=== PATIENT | female | born 1965 ===

== ENCOUNTER 2018-07-15 22:19 | Emergency (ER) | payer BC ==
[2018-07-15 22:26] VITALS: BP 140/81; PULSE 66; TEMP 97.9; BMI 29.5
[2018-07-15] MEDS ORDERED: ONDANSETRON 4 MG/2 ML VIAL IVPB ONE (22:49)
--- NOTE | 2018-07-15 22:49 | PDOC ---
History of Present Illness - General Chief Complaint: Lightheaded Stated Complaint: DIZZINESS,NAUSEA/VOMITING Time Seen by Provider: 07/15/18 22:36 History Source: Patient Exam Limitations: No Limitations - History of Present Illness Initial Comments: 07/15/18 23:24 This is a 53-year-old female who has a history of dizziness and vomiting in the past. Patient does not know if it was vertigo but thought it was probably food poisoning. Patient comes in today complaining of acute onset of dizziness associated with nausea and vomiting. Patient said she's been vomiting multiple times today. Patient denies any ringing or buzzing in her ears. Patient denies any changes in her vision. Patient denies any headache neck pain or any neurological complaints. Patient is otherwise healthy and takes no medication. PAST MEDICAL HISTORY: no significant history PAST SURGICAL HISTORY: no significant history FAMILY HISTORY: no pertinant history SOCIAL HISTORY: Pt lives with family and is employed. MEDICATIONS: reviewed ALLERGIES: As per nursing notes ROS General: No fevers or chills, no weakness, no weight loss HEENT: No change in vision. No sore throat,. No ear pain CardioVascular: No chest pain or shortness of breath Respiratory:No cough, or wheezing. Gastrointestinal: +nausea, +vomiting, diarrhea or constipation, No rectal bleeding Genitourinary: No dysuria, hematuria, or frequency Musculoskeletal: . No joint pain or swelling Neurologic: No headache, vertigo, +dizziness or loss of consciousness Psychiatric: nor depression Skin: No rashes or easy bruising Endocrine: no increased thirst or abnormal weight change Allergic: no skin or latex allergy All other systems reviewed and normal Exam: General: Well-nourished well-developed individual, no acute distress, mucous membranes are dry HEENT: Throat: Normal, tonsils normal, no erythema or exudate Neck: Supple, no meningeal signs, no lymphadenopathy Eyes::Pupils equal reactive and round, extraocular motion intact Chest: Nontender to palpation Cardiac: S1-S2 normal, regular rate and rhythm, no murmurs rubs or gallops Respiratory: Lungs clear to auscultation bilateral Abdomen: Soft, nondistended, normal bowel sounds, there is no tenderness on palpation diffusely Extremities: Warm, dry, no cyanosis, clubbing, or edema Skin: No rashes Neuro: Alert and oriented x3, CN II - XII intact, nonfocal exam with normal strength, normal sensation, normal reflexes, normal gait, Psych: Normal mood and affect Past History - Past Medical History Allergies/Adverse Reactions: Allergies Allergy/AdvReac Type Severity Reaction Status Date / Time No Known Allergies Allergy Unverified 07/15/18 22:20 Home Medications: Ambulatory Orders NK [No Known Home Medication] 07/15/18 COPD: No Other medical history: SEASONAL ALLERGIES - Suicide/Smoking/Psychosocial Hx Smoking History: Never smoked *Physical Exam - Vital Signs Last Vital Signs Temp Pulse Resp BP Pulse Ox 97.9 F 66 20 140/81 100 07/15/18 22:21 07/15/18 22:21 07/15/18 22:21 07/15/18 22:21 07/15/18 22:21 ED Treatment Course - LABORATORY CBC & Chemistry Diagram: 07/15/18 22:50 07/15/18 22:50 *DC/Admit/Observation/Transfer Diagnosis at time of Disposition: Dehydration Nausea and vomiting Qualifiers: Vomiting type: unspecified Vomiting Intractability: non-intractable Qualified Code(s): R11.2 - Nausea with vomiting, unspecified - Discharge Dispostion Disposition: HOME Condition at time of disposition: Stable Decision to Admit order: No - Referrals Referrals: Bro Bryan [Primary Care Provider] - - Patient Instructions - Post Discharge Activity
[2018-07-15] MEDS ORDERED: ONDANSETRON 4 MG/2 ML VIAL ONE (22:55)
[2018-07-15] MEDS ORDERED: SODIUM CHLORIDE 1,000 ML IV SCH (23:00)
[2018-07-15 23:08] LABS: BASO % 0.3 % (0-2.0); EOS % 0.2 % (0-4.5); HEMATOCRIT 42.9 % (32.4-45.2); HEMOGLOBIN 13.9 GM/dl (10.7-15.3); LYMPH % 15.7 % (8-40); MCHC 32.5 g/dl (32.0-36.0); MEAN PLT VOLUME 8.1 fl (7.5-11.1); MONO % 3.3 % (3.8-10.2); NEUT % 80.5 % (42.8-82.8); PLATELET COUNT 277 K/MM3 (134-434); RBC 4.82 M/mm3 (3.60-5.2); RDW 12.3 % (11.6-15.6); WHITE BLOOD COUNT 6.3 K/mm3 (4.0-10.8)
[2018-07-15 23:21] LABS: ALK PHOS 47 U/L (32-92); ANION GAP 9 MMOL/L (8-16); BILIRUBIN,TOTAL 0.7 mg/dl (0.2-1.0); BLOOD UREA NITROGEN 15 mg/dl (7-18); CALCIUM 9.1 mg/dl (8.4-10.2); CHLORIDE 104 mmol/L (98-107); CO2 22 mmol/L (22-28); GLUCOSE,RANDOM 118 mg/dl (74-106); POTASSIUM 3.7 mmol/L (3.5-5.1); SGOT/AST 22 U/L (10-42); SGPT/ALT 22 U/L (10-40); SODIUM 135 mmol/L (136-145); TOT PROT 6.8 g/dl (6.4-8.3)
[2018-07-15 23:22] LABS: CREATININE < 0.6 mg/dl (0.6-1.3)
[2018-07-15 23:40] LABS: PH,URINE 8.5 (4.5-8); URINE APPEARANCE Clear; URINE BILIRUBIN Negative (NEGATIVE); URINE COLOR Yellow; URINE GLUCOSE (UA) Negative (NEGATIVE); URINE KETONE 4+ (NEGATIVE); URINE LEUK ESTERASE 1+ (NEGATIVE); URINE NITRITE Negative (NEGATIVE); URINE PROTEIN Trace (NEGATIVE); URINE UROBILINOGEN 0.2 (0.2-1.0)
[2018-07-15 23:45] LABS: EPI CELLS FEW /HPF; URINE RBC 0-2 /hpf (0-3)
[2018-07-15 23:46] LABS: URINE BACTERIA 2+ /hpf (NEGATIVE)
[2018-07-16] MEDS ORDERED: ACETAMINOPHEN 1000 MG/100 ML VIAL (NON FORMULARY) IVPB ONE (00:21)
[2018-07-16] MEDS ORDERED: ACETAMINOPHEN INJECTION 100 ML IVPB ONE (00:22)
--- NOTE | 2018-07-16 00:36 | PDOC ---
*Physical Exam - Vital Signs Last Vital Signs Temp Pulse Resp BP Pulse Ox 97.9 F 66 20 140/81 100 07/15/18 22:21 07/15/18 22:21 07/15/18 22:21 07/15/18 22:21 07/15/18 22:21 ED Treatment Course - LABORATORY CBC & Chemistry Diagram: 07/15/18 22:50 07/15/18 22:50 - ADDITIONAL ORDERS Additional order review: Laboratory Results 07/15/18 07/15/18 07/15/18 23:30 22:50 22:50 Sodium Potassium Chloride Carbon Dioxide Anion Gap BUN Creatinine Creat Clearance w eGFR Random Glucose Calcium Total Bilirubin AST ALT Alkaline Phosphatase Creatine Kinase 91 Troponin I < 0.03 Total Protein Albumin Urine Color Yellow Urine Appearance Clear Urine pH 8.5 H Ur Specific [place] 1.020 Urine Protein Trace Urine Glucose (UA) Negative Urine Ketones 4+ H Urine Blood Negative Urine Nitrite Negative Urine Bilirubin Negative Urine Urobilinogen 0.2 Ur Leukocyte Esterase 1+ H Urine RBC 0-2 Urine WBC 5-10 Ur Epithelial Cells Few Urine Bacteria 2+ 07/15/18 22:50 Sodium 135 L Potassium 3.7 Chloride 104 Carbon Dioxide 22 Anion Gap 9 BUN 15 Creatinine < 0.6 L Creat Clearance w eGFR > 60 Random Glucose 118 H Calcium 9.1 Total Bilirubin 0.7 AST 22 ALT 22 Alkaline Phosphatase 47 Creatine Kinase Troponin I Total Protein 6.8 Albumin 4.0 Urine Color Urine Appearance Urine pH Ur Specific [place] Urine Protein Urine Glucose (UA) Urine Ketones Urine Blood Urine Nitrite Urine Bilirubin Urine Urobilinogen Ur Leukocyte Esterase Urine RBC Urine WBC Ur Epithelial Cells Urine Bacteria 07/15/18 22:50 RBC 4.82 MCV 89.0 MCHC 32.5 RDW 12.3 MPV 8.1 Neutrophils % 80.5 Lymphocytes % 15.7 Monocytes % 3.3 L Eosinophils % 0.2 Basophils % 0.3 - RADIOLOGY Radiology Studies Ordered: Category Date Time Status HEAD CT WITHOUT CONTRAST [CT] Stat CT Scan 07/16/18 00:20 Ordered - Medications Given in the ED: ED Medications Discontinued Medications Generic Name Dose Route Start Last Admin Trade Name Freq PRN Reason Stop Dose Admin Acetaminophen 1,000 mg 07/16/18 00:21 07/16/18 00:25 Ofirmev Injection - IVPB 07/16/18 00:22 1,000 mg ONCE ONE Administration Ondansetron HCl 8 mg 07/15/18 22:49 07/15/18 22:57 Zofran Injection IVPB 07/15/18 22:50 8 mg ONCE ONE Administration Progress Note - Progress Note Progress Note: This chart was open because of the chart was approximately signed prior to patient being discharged. Medical decision making: Patient treated in the ED. Nursing notes are reviewed and incorporated into the medical decision-making. Vital signs reviewed. Peripheral IV access obtained by the nurse, laboratory studies are drawn and sent, reviewed and interpreted by myself. EKG was done which shows normal sinus rhythm rate of 58, no acute ST-T wave changes 23:45 Post 2 L of fluid patient was feeling better however she still felt weak and what she described as dizzy. Her dizziness was not vertigo, but is not spinning sensation, is not passing out or feeling like she is in the past. She describes it as just weak when she tries to get up and ambulate. Her nor exam is nonfocal and there is no detectable weakness. Head CT is ordered as she is also complaining of a headache. Patient's labs are otherwise unremarkable Nursing notes are reviewed and incorporated into the medical decision-making. Vital signs reviewed. Peripheral IV access obtained by the nurse, laboratory studies are drawn and sent, reviewed and interpreted by myself. *DC/Admit/Observation/Transfer Diagnosis at time of Disposition: Dehydration Nausea and vomiting Qualifiers: Vomiting type: unspecified Vomiting Intractability: non-intractable Qualified Code(s): R11.2 - Nausea with vomiting, unspecified - Discharge Dispostion Disposition: HOME Condition at time of disposition: Stable - Prescriptions Prescriptions: Ondansetron [Zofran *Odt*] 8 mg SL TID #9 od.tablet - Referrals Referrals: Bro Bryan [Primary Care Provider] - - Patient Instructions Additional Instructions: Tylenol as needed for the headache. For the nausea take Zofran 1 tablet as often as 3 times a day I sent a prescription for the Zofran to pharmacy. Return to the emergency department immediately with ANY new, persistent or worsening symptoms. Continue any medications as previously prescribed by your physician. You should follow up with your primary doctor as soon as possible regarding today's emergency department visit. . Please make sure your doctor reviews the results of your emergency evaluation. Thank you for coming to the Emergency Department today for your care. It was a pleasure to see you today. Please note that your evaluation is INCOMPLETE until you follow-up with your doctor. - Post Discharge Activity
--- NOTE | 2018-07-19 23:51 | EKG ---
Test Reason : Blood Pressure : / mmHG Vent. Rate : 058 BPM Atrial Rate : 058 BPM P-R Int : 130 ms QRS Dur : 092 ms QT Int : 482 ms P-R-T Axes : 034 035 030 degrees QTc Int : 473 ms SINUS BRADYCARDIA OTHERWISE NORMAL ECG NO PREVIOUS ECGS AVAILABLE Confirmed by SHAZIA THOMAS MD ([id number]) on 07/19/2018 11:50:30 PM Referred By: DR LEWIS Confirmed By:SHAZIA THOMAS MD
== END 2018-07-16 02:04 | disposition home or self-care (01) ==
LOC: FER 22:19
PROC: 3E033NZ Introduction of Analgesics, Hypnotics, Sedatives into Peripheral Vein, Percutaneous Approach (ICD-10-PCS; principal; 2018-07-15)
PROC: 3E033GC Introduction of Other Therapeutic Substance into Peripheral Vein, Percutaneous Approach (ICD-10-PCS; 2018-07-15)
PROC: 3E0337Z Introduction of Electrolytic and Water Balance Substance into Peripheral Vein, Percutaneous Approach (ICD-10-PCS; 2018-07-15)
DX: R11.2 Nausea with vomiting, unspecified (principal); E86.0 Dehydration
CPT/HCPCS: 36415; 70450-TC; 80053; 81003; 81015; 82550; 83690; 84484; 85025; 93005; 99283-25; J0131; J7030